=== PATIENT | female | born 1975 | race Two or more races ===

== ENCOUNTER 2023-04-07 12:18 | Emergency (ER) | payer MEDICAID ==
[~2023-04-07] VITALS: Ht 162.6 cm; Wt 111.7 kg
[2023-04-07 15:08] VITALS: BP 140/93
[2023-04-07] MEDS ORDERED: HYDROcodone-ACET 5/325MG TAB PO ONE (16:45)
[2023-04-07] MEDS ORDERED: IBUP-1456 PO (16:56)
[2023-04-07] MEDS ORDERED: IBUPROFEN 800 MG TAB PO ONE (17:15)
== END 2023-04-07 17:15 | disposition home or self-care (01) ==
LOC: ER 12:18
DX: S76.012A Strain of muscle, fascia and tendon of left hip, initial encounter (principal); E66.01 Morbid (severe) obesity due to excess calories; Z68.41 Body mass index [BMI] 40.0-44.9, adult; X50.0XXA Overexertion from strenuous movement or load, initial encounter; Y93.89 Activity, other specified; Y92.89 Other specified places as the place of occurrence of the external cause; Y99.8 Other external cause status
CPT/HCPCS: 73502

== ENCOUNTER 2024-08-06 16:53 | Emergency (ER) | payer MEDICAID ==
[~2024-08-06] VITALS: Ht 162.6 cm; Wt 92.3 kg
[~2024-08-06 16:53] MED LIST: IBUP-1456 PO
[2024-08-06 18:36] VITALS: BP 151/71; PULSE 91; RESP 18; TEMP 98.8; O2SAT 97
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
--- NOTE | 2024-08-06 20:05 | DVH ---
LEFT Upper Extremity Venous Duplex Clinical History: PAIN Comparison: None Technique: Duplex Doppler evaluation of the venous system of the LEFT lower neck and upper extremity including color Doppler and spectral/pulsed waveform analysis was performed. Findings: The internal jugular vein demonstrates appropriate compressibility and waveform variability. The subclavian vein is patent on color Doppler evaluation without intraluminal thrombus and demonstra nancy waveform variability. The visualized portion of the brachiocephalic vein is patent on color Doppler evaluation without intr aluminal thrombus and demonstrates waveform variability. The axillary vein demonstrates appropriate compressibility and waveform variability. The brachial veins demonstrate appropriate compressibility and patency on Doppler evaluation. The basilic vein demonstrates appropriate compressibility and patency on Doppler evaluation. The cephalic vein demonstrates appropriate compressibility and patency on Doppler evaluation. Impression: No venous thrombus identified in the LEFT upper extremity vessels evaluated above. If clinical concern/symptoms persist or worsen, short-interval follow-up study is suggested.
[2024-08-06] MEDS ORDERED: IBUP-1456 PO (20:14)
== END 2024-08-06 20:28 | disposition home or self-care (01) ==
LOC: ER 16:58
DX: S40.022A Contusion of left upper arm, initial encounter (principal); X58.XXXA Exposure to other specified factors, initial encounter; Y93.89 Activity, other specified; Y92.89 Other specified places as the place of occurrence of the external cause; Y99.8 Other external cause status
CPT/HCPCS: 93971

== ENCOUNTER 2025-07-20 02:13 | Emergency (ER) | payer MEDICAID ==
[~2025-07-20] VITALS: Ht 162.6 cm; Wt 82.5 kg
[2025-07-20 03:02] VITALS: BP 156/82; PULSE 79; RESP 19; TEMP 98.2; O2SAT 98
[2025-07-20] MEDS: KETOROLAC TROMETH 60MG/2ML VIAL IM ONE (03:02)
[2025-07-20] MEDS ORDERED: IBUP-1455 PO (03:10)
[2025-07-20] MEDS ORDERED: ACET500T58 PO (03:10)
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
== END 2025-07-20 03:54 | disposition home or self-care (01) ==
LOC: ER 02:13
DX: S16.1XXA Strain of muscle, fascia and tendon at neck level, initial encounter (principal); S39.012A Strain of muscle, fascia and tendon of lower back, initial encounter; E66.9 Obesity, unspecified; Z79.1 Long term (current) use of non-steroidal anti-inflammatories (NSAID); Z68.31 Body mass index [BMI] 31.0-31.9, adult; Z79.899 Other long term (current) drug therapy; V89.2XXA Person injured in unspecified motor-vehicle accident, traffic, initial encounter; Y93.89 Activity, other specified; Y92.488 Other paved roadways as the place of occurrence of the external cause; Y99.8 Other external cause status
CPT/HCPCS: 72040; 72070; 72100; 96372; 99284; J1885